=== PATIENT | female | born 1995 | race African-American/Black ===

== ENCOUNTER 2022-04-20 09:20 | Outpatient (CLI) | payer OTHER, SELFPAY ==
--- NOTE | ~2022-04-20 | US_ITS ---
EXAMINATION: US pelvic complete w TV DATE: 04/20/2022 10:55 INDICATION: Abnormal uterine and vaginal bleeding Comparison:No prior studies TECHNIQUE: Multiple transabdominal and endovaginal sonographic images of the pelvis performed. FINDINGS: The uterus measures 8 x 4.1 x 4.9 cm. The endometrial complex measures 5 mm. The right ovary measures 3.5 x 2.3 x 2.7 cm and the left ovary measures 2.3 x 1.7 x 1.7 cm. There is a right ovarian cyst measuring up to 1.6 cm. There are small follicles in each ovary. Normal doppler signal in both ovaries. There is no free fluid in the pelvis. There are no abnormal masses seen on either side. IMPRESSION: 1. Right ovarian cyst measuring maximum dimension of 1.6 cm. Reviewed, dictated and finalized at location L.
[2022-04-20 09:54] LABS: Basophils Absolute Auto 0.1 K/mm3 (0.0-0.1); Basophils Percent Auto 1.2 % (0.2-1.2); Eosinophils Absolute Auto 0.5 K/mm3 (0-0.3); Eosinophils Percent Auto 9.6 % (0-4.4); Hematocrit 39.9 % (37.0-47.0); Hemoglobin 13.4 g/dL (12.0-15.0); Immature Granulocyte Absolute 0.01 K/mm3 (0.00-0.031); Immature Granulocyte Percent A 0.2 % (0-0.5); Lymphocytes Absolute Auto 2.08 K/mm3 (0.9-3.2); Lymphocytes Percent Auto 40.5 % (18.3-44.2); Mean Corpuscular HGB Conc 33.6 g/dl (32-36); Mean Corpuscular Hemoglobin 30.4 pg (26-34); Mean Corpuscular Volume 90.5 fl (80-100); Mean Platelet Volume 9.7 fl (7.4-10.4); Monocytes Absolute Auto 0.4 K/mm3 (0.1-0.6); Monocytes Percent Auto 7.6 % (2.6-8.5); Neutrophils Absolute Auto 2.1 K/mm3 (1.3-6.7); Neutrophils Percent Auto 40.9 % (45.5-73.1); Platelet Count Result 341 k/mm3 (150-375); Red Blood Count 4.41 M/mm3 (4.2-5.4); Red Cell Distribution Width 14.2 % (11.5-14.5); White Blood Count 5.1 K/mm3 (4.5-10.0)
[2022-04-20 12:47] LABS: Cholesterol 124 mg/dL (0-200); HDL Direct 41 mg/dL; Triglycerides 79 mg/dL (<150)
[2022-04-20 12:50] LABS: Hemoglobin A1C 5.3 % (<5.7)
[2022-04-20 12:57] LABS: LDL Cholesterol Direct 52 mg/dL
[2022-04-20 13:05] LABS: Beta HCG Quantitative < 2.39 mIU/ML
[2022-04-24 13:31] LABS: DHEA-Sulfate 156 mcg/dL (18-391)
[2022-04-24 15:28] LABS: FSH 8.4 mIU/mL (***); Progesterone 0.4 ng/mL (***); Prolactin 29.9 ng/mL (***)
[2022-04-26 17:43] LABS: Testosterone Free 4.8 pg/mL (0.1-6.4); Testosterone Total 25 ng/dL (2-45)
[2022-05-02 07:27] LABS: Estradiol, Ultrasensitive 43 pg/mL
== END 2022-04-20 09:21 | disposition home or self-care (01) ==
LOC: ANHIMG 09:22
PROVIDERS: Visit Provider Obstetrics & Gynecology
DX: N93.9 Abnormal uterine and vaginal bleeding, unspecified (principal); N83.201 Unspecified ovarian cyst, right side
CPT/HCPCS: 36415; 76830; 76856; 80061; 82627; 82670; 83001; 83036; 83498; 84144; 84146; 84402; 84403; 84702; 85025